=== PATIENT | female | born 1935 | race Caucasian/White ===

== ENCOUNTER 2019-01-08 13:24 | Emergency (ER) | payer MEDICARE, BC ==
--- NOTE | 2019-01-08 14:32 | EDM.PDOC ---
ED HPI GENERAL MEDICAL PROBLEM - General Chief Complaint: Genitourinary Problem Stated Complaint: UTI Time Seen by Provider: 01/08/19 14:10 Source of Information: Reports: Patient History Limitations: Reports: No Limitations - History of Present Illness INITIAL COMMENTS - FREE TEXT/NARRATIVE: 83-year-old female with mild dysuria and increased urinary frequency for the past 2 days. No fevers or chills, no significant back pain. 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: Musculoskeletal History: Reports: Arthritis Hematologic History: Reports: Anemia, Iron Deficiency Dermatologic History: Reports: Eczema - Past Surgical History HEENT Surgical History: Reports: Adenoidectomy, Cataract Surgery, Tonsillectomy Musculoskeletal Surgical History: Reports: Knee Replacement Social & Family History - Tobacco Use Smoking Status *Q: Never Smoker - Caffeine Use Caffeine Use: Reports: None - Recreational Drug Use Recreational Drug Use: No ED ROS GENERAL - Review of Systems Review Of Systems: See Below Constitutional: Denies: Fever, Chills HEENT: Reports: No Symptoms Respiratory: Denies: Shortness of Breath Cardiovascular: Denies: Chest Pain GI/Abdominal: Denies: Nausea, Vomiting : Reports: Dysuria, Frequency Skin: Reports: No Symptoms ED EXAM, RENAL/ - Physical Exam Exam: See Below Exam Limited By: No Limitations General Appearance: Alert, No Apparent Distress Respiratory/Chest: No Respiratory Distress Back Exam: No: CVA Tenderness (R), CVA Tenderness (L) Neurological: Alert, Oriented Skin Exam: Warm, Dry Course - Vital Signs Last Recorded V/S: Last Vital Signs Temp 97.4 F 01/08/19 14:10 Pulse 87 01/08/19 14:10 Resp 18 01/08/19 14:10 BP 169/89 H 01/08/19 14:10 Pulse Ox 95 01/08/19 14:10 - Orders/Labs/Meds Orders: Active Orders 24 hr Category Date Time Status CULTURE URINE [RM] Stat Lab 01/08/19 14:29 Received Labs: Laboratory Tests 01/08/19 Range/Units 13:58 Urine Color Yellow Urine Appearance Cloudy Urine pH 6.0 (4.5-8.0) Ur Specific [place] 1.015 (1.008-1.030) Urine Protein Negative (NEGATIVE) mg/dL Urine Glucose (UA) Normal (NEGATIVE) mg/dL Urine Ketones Negative (NEGATIVE) mg/dL Urine Occult Blood Negative (NEGATIVE) Urine Nitrite Positive H (NEGATIVE) Urine Bilirubin Negative (NEGATIVE) Urine Urobilinogen Normal (NORMAL) mg/dL Ur Leukocyte Esterase Large (NEGATIVE) Urine RBC 0-5 (0-5) Urine WBC 20-30 H (0-5) Ur Epithelial Cells Few Amorphous Sediment Few Urine Bacteria Few Urine Mucus Not seen - Re-Assessments/Exams Free Text/Narrative Re-Assessment/Exam: 01/08/19 17:07 UA nitrate pos, wbc present. Culture started and patient placed on Macrobid 100 mg bid 5 days. Departure - Departure Time of Disposition: 14:47 Disposition: Home, Self-Care 01 Condition: Good Clinical Impression: UTI, Urinary tract infectious disease - Discharge Information Instructions: Urinary Tract Infection, Adult Referrals: PCP,None [Primary Care Provider] - Forms: ED Department Discharge Care Plan Goals: Take antibiotic twice daily as prescribed. Take for the full 5 days, and recheck in 2-3 days if not improving satisfactorily. - My Orders Last 24 Hours: My Active Orders 01/08/19 14:29 CULTURE URINE [RM] Stat - Assessment/Plan Last 24 Hours: My Active Orders 01/08/19 14:29 CULTURE URINE [RM] Stat
== END 2019-01-08 14:46 | disposition home or self-care (01) ==
LOC: JP.ED 13:24
DX: N39.0 Urinary tract infection, site not specified (principal); M19.90 Unspecified osteoarthritis, unspecified site; Z98.49 Cataract extraction status, unspecified eye; Z98.890 Other specified postprocedural states
CPT/HCPCS: 81001; 87086; 99283

== ENCOUNTER 2019-01-12 12:13 | Emergency (ER) | payer MEDICARE, BC ==
--- NOTE | 2019-01-12 13:44 | EDM.PDOC ---
ED HPI GENERAL MEDICAL PROBLEM - General Chief Complaint: Genitourinary Problem Stated Complaint: UTI/NOT GETTING BETTER Time Seen by Provider: 01/12/19 12:27 Source of Information: Reports: Patient History Limitations: Reports: No Limitations - History of Present Illness INITIAL COMMENTS - FREE TEXT/NARRATIVE: chief complaint: frequent painful urination This is a 83 year old female presents to the ER for evaluation of symptoms. she reports treated for a bladder infection on 01/08/2019 in ER. She was given Macrobid bid x 5 days. Reports felt better for about a day then urgency, pain returns. She was up multi times during the night to go to the bathroom. Feels like fever started yesterday. She is able to eat and drink without any nausea, vomiting or diarrhea. Onset Date: 01/06/19 Duration: Waxing/Waning (started antibiotic 01/08/2010, improved for one day then symptoms returned. now feeling a bit worse. 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 (see below) - Related Data Allergies Allergy/AdvReac Type Severity Reaction Status Date / Time No Known Allergies Allergy Verified 01/08/19 14:12 Home Meds: Home Meds Alendronate Sodium [Fosamax] 70 mg PO WEEKLY 01/12/19 [History] Calcium Citrate/Vitamin D3 [Calcium Citrate - Vit D Caplet] 1 tab PO DAILY 01/12 [History] Cetirizine [ZyrTEC] 10 mg PO DAILY 01/12/19 [History] Docusate Sodium [Colace] 100 mg PO BID 01/12/19 [History] Ferrous Sulfate [Iron] 325 mg PO ASDIRECTED 01/12/19 [History] Fluticasone Propionate [Flonase] 01/12/19 [History] Folic Acid 1 mg PO ASDIRECTED 01/12/19 [History] Nitrofurantoin Garrett/Macrocryst [Nitrofurantoin Garrett-MCR] 01/12/19 [History] Omeprazole Magnesium [Prilosec Otc] 40 mg PO DAILY 01/12/19 [History] traMADol [Ultram] 25 mg PO BEDTIME 01/12/19 [History] Past Medical History HEENT History: Reports: Cataract Genitourinary History: Reports: Urinary Incontinence 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: Musculoskeletal History: Reports: Arthritis Hematologic History: Reports: Anemia, Iron Deficiency Dermatologic History: Reports: Eczema - Past Surgical History HEENT Surgical History: Reports: Adenoidectomy, Cataract Surgery, Tonsillectomy Musculoskeletal Surgical History: Reports: Knee Replacement Social & Family History - Tobacco Use Smoking Status *Q: Unknown Ever Smoked - Caffeine Use Caffeine Use: Reports: None - Living Situation & Occupation Living situation: Reports: ED ROS GENERAL - Review of Systems Review Of Systems: See Below Constitutional: Reports: Fever, Malaise HEENT: Reports: No Symptoms Respiratory: Reports: No Symptoms Cardiovascular: Reports: No Symptoms Endocrine: Reports: No Symptoms GI/Abdominal: Reports: No Symptoms : Reports: Dysuria, Flank Pain (report low back pain since yesterday), Frequency, Pain, Urgency Musculoskeletal: Reports: No Symptoms Skin: Reports: Rash (groin area and external genitalia with redness, white exudate noted at entroitus. mild odor) Neurological: Reports: No Symptoms Psychiatric: Reports: No Symptoms Hematologic/Lymphatic: Reports: No Symptoms Immunologic: Reports: No Symptoms ED EXAM, GI/ABD - Physical Exam Exam: See Below Exam Limited By: No Limitations General Appearance: Alert, WD/WN, No Apparent Distress Eyes: Bilateral: Normal Appearance Ears: Normal External Exam Nose: Normal Inspection Throat/Mouth: Normal Inspection Head: Atraumatic, Normocephalic Neck: Normal Inspection, Supple, Non-Tender, Full Range of Motion Respiratory/Chest: No Respiratory Distress, Lungs Clear, Normal Breath Sounds, No Accessory Muscle Use Cardiovascular: Regular Rate, Rhythm, No Murmur GI/Abdominal Exam: Normal Bowel Sounds, Soft, Non-Tender (Female) Exam: Vaginal Discharge (white discharge noted labia majora and entroitus. redness to groin ) Back Exam: Normal Inspection, Full Range of Motion Extremities: Normal Inspection, Normal Range of Motion Neurological: No Motor/Sensory Deficits Psychiatric: Normal Affect, Normal Mood Skin Exam: Warm, Dry, Intact, Rash (tinnea type rash noted to groin) Lymphatic: No Adenopathy Course - Vital Signs Last Recorded V/S: Last Vital Signs Temp 35.5 C 01/12/19 12:46 Pulse 88 05/18/19 12:46 Resp 19 01/12/19 12:46 BP 161/65 H 01/12/19 12:46 Pulse Ox 95 01/12/19 12:46 - Orders/Labs/Meds Labs: Laboratory Tests 01/12/19 Range/Units 13:07 Urine Color Yellow Urine Appearance Slightly cloudy Urine pH 6.0 (4.5-8.0) Ur Specific [place] 1.015 (1.008-1.030) Urine Protein Negative (NEGATIVE) mg/dL Urine Glucose (UA) Normal (NEGATIVE) mg/dL Urine Ketones Negative (NEGATIVE) mg/dL Urine Occult Blood Negative (NEGATIVE) Urine Nitrite Negative (NEGATIVE) Urine Bilirubin Negative (NEGATIVE) Urine Urobilinogen Normal (NORMAL) mg/dL Ur Leukocyte Esterase Negative (NEGATIVE) Urine RBC 0-5 (0-5) Urine WBC 0-5 (0-5) Ur Epithelial Cells Rare Amorphous Sediment Not seen Urine Bacteria Not seen Urine Mucus Not seen - Re-Assessments/Exams Free Text/Narrative Re-Assessment/Exam: 01/12/19 12:34 vital signs 35.5-88-19 B/P161/65 oxygen 95% urine with WBC 0-5, cloudy urine. wet prep; +bacteria, no yeast due to symptoms of UTI, will treat with antibiotic and advise follow up in Primary Care discussed return to ER if not improved. Departure - Departure Time of Disposition: 13:40 Disposition: Home, Self-Care 01 Condition: Good Clinical Impression: Cystitis - Discharge Information *PRESCRIPTION DRUG MONITORING PROGRAM REVIEWED*: Not Applicable *COPY OF PRESCRIPTION DRUG MONITORING REPORT IN PATIENT ARLYN: Not Applicable Instructions: Urinary Tract Infection, Adult Referrals: PCP,None [Primary Care Provider] - Forms: ED Department Discharge Care Plan Goals: Urinary Tract symptoms -start Keflex 500 mg take two times a day til gone -apply clotrimazole 1% cream to groin two times a day for 7 d ays -please drink at least 6 to 8 glasses of water for the next few days -follow up in Primary Care for recheck on Monday or Monday Return to ER sooner if has increased pain, fever, chills, nausea, vomiting, rash or not improved - Problem List & Annotations (1) Urinary tract infection symptoms SNOMED Code(s): 140690938 Code(s): R39.9 - UNSP SYMPTOMS AND SIGNS INVOLVING THE GENITOURINARY SYSTEM Status: Acute Priority: High - Problem List Review Problem List Initiated/Reviewed/Updated: Yes - Assessment/Plan Plan: Urinary Tract symptoms -start Keflex 500 mg take two times a day til gone -apply clotrimazole 1% cream to groin two times a day for 7 d ays -please drink at least 6 to 8 glasses of water for the next few days -follow up in Primary Care for recheck on Monday or Monday Return to ER sooner if has increased pain, fever, chills, nausea, vomiting, rash or not improved
== END 2019-01-12 14:10 | disposition home or self-care (01) ==
LOC: JP.ED 12:13
DX: N30.90 Cystitis, unspecified without hematuria (principal); Z79.899 Other long term (current) drug therapy
CPT/HCPCS: 81001; 87210; 99283

== ENCOUNTER 2019-02-02 13:39 | Emergency (ER) | payer MEDICARE, BC ==
--- NOTE | 2019-02-02 16:03 | EDM.PDOC ---
ED HPI GENERAL MEDICAL PROBLEM - General Chief Complaint: Genitourinary Problem Stated Complaint: UTI/INJURY IN TAIL BONE Time Seen by Provider: 02/02/19 15:00 Source of Information: Reports: Patient History Limitations: Reports: No Limitations, Other (elderly) - History of Present Illness INITIAL COMMENTS - FREE TEXT/NARRATIVE: 83-year-old female presents to the ER for dysuria and tailbone pain. Patient was seen twice last month for similar symptoms. Patient is given Macrobid and then ciprofloxacin for urinary tract infection with negative urine culture results. Patient is a history of a bladder suspension to help with urinary leakage. She is wearing depends. She has noticed some burning and tingling in her groin area also noted a rash. Patient states she has pain and burning with urination. She is attempting to hydrate herself to help with the dysuria but unfortunate she is urinating more often. Patient also has tailbone pain but states when her first son was born approximately 60 years ago she had a tailbone fracture and has had intermittent tailbone pain in the past. Patient denies any weakness in her right or left leg. Her pain in her back does radiate into her groin area. Patient has not had any new falls or injury she has fallen once and which she bruised her tailbone once again. Patient is dropped off by her for evaluation. Patient is wearing her night clothes in the middle of the afternoon due to just not feeling well. Patient states she was given 2 units of blood a couple months ago tripped due to her hemoglobin being less than 6. Nay's has been here Onset: Gradual Groin Pain Score (Numeric/FACES): 4 - Related Data Allergies Allergy/AdvReac Type Severity Reaction Status Date / Time No Known Allergies Allergy Verified 02/02/19 15:13 Home Meds: Home Meds Alendronate Sodium [Fosamax] 70 mg PO WEEKLY 01/12/19 [History] Calcium Citrate/Vitamin D3 [Calcium Citrate - Vit D Caplet] 1 tab PO DAILY 01/12 [History] Cetirizine [ZyrTEC] 10 mg PO DAILY 01/12/19 [History] Docusate Sodium [Colace] 100 mg PO BID 01/12/19 [History] Ferrous Sulfate [Iron] 325 mg PO ASDIRECTED 01/12/19 [History] Fluticasone Propionate [Flonase] 1 spray DANILO DAILY 01/12/19 [History] Folic Acid 1 mg PO ASDIRECTED 01/12/19 [History] Omeprazole Magnesium [Prilosec Otc] 40 mg PO DAILY 01/12/19 [History] traMADol [Ultram] 25 mg PO BEDTIME 01/12/19 [History] Estradiol [Estrace Vaginal] 1 applic VAG BEDTIME 14 Days #1 tube 02/02/19 [Rx] Nystatin 30 gm TP ACLUNCH 14 Days #1 container 02/02/19 [Rx] Past Medical History HEENT History: Reports: Cataract Genitourinary History: Reports: Urinary Incontinence, UTI, 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: Musculoskeletal History: Reports: Arthritis Hematologic History: Reports: Anemia, Iron Deficiency Dermatologic History: Reports: Eczema - Past Surgical History HEENT Surgical History: Reports: Adenoidectomy, Cataract Surgery, Tonsillectomy Female Surgical History: Reports: Hysterectomy Musculoskeletal Surgical History: Reports: Knee Replacement Social & Family History - Tobacco Use Smoking Status *Q: Never Smoker - Caffeine Use Caffeine Use: Reports: None - Recreational Drug Use Recreational Drug Use: No - Living Situation & Occupation Living situation: Reports: ED ROS GENERAL - Review of Systems Review Of Systems: See Below Constitutional: Reports: No Symptoms, Malaise, Weakness, Night Sweats. Denies: Fever, Chills : Reports: Dysuria, Incontinence, Pain Musculoskeletal: Reports: Back Pain (Tailbone recurrent ) Psychiatric: Reports: Confusion (possible underlying dementia. Limited medical history in [facility] ) ED EXAM, GENERAL - Physical Exam Exam: See Below Exam Limited By: Other (possible underlying dementia due to age) Eye Exam: Bilateral Eye: EOMI, PERRL Ears: Normal External Exam, Normal TMs. No: Hearing Grossly Normal (slightly hard of hearing ) Respiratory/Chest: No Respiratory Distress, Lungs Clear, Normal Breath Sounds, No Accessory Muscle Use, Chest Non-Tender Cardiovascular: Normal Peripheral Pulses, Regular Rate, Rhythm, No Edema, No Gallop, No JVD, No Rub, Systolic Murmur GI/Abdominal: Normal Bowel Sounds, Soft, No Organomegaly, No Distention, No Abnormal Bruit, No Mass, Tender (mild diffuse discomfort without focal or significant pain ) (Female) Exam: Cervical Discharge, Other (uretheral irritation noted. Groin erythema with rash consistent with poor hygiene. Atrophic vaginal tissue noted with small tears/excoriations. ). No: Vaginal Bleeding, Vaginal Discharge Back Exam: Normal Inspection, CVA Tenderness (R), CVA Tenderness (L) (slight pain in lower back over tailbone but unable to reproduce. ) Extremities: Normal Inspection, Normal Range of Motion, Non-Tender, Normal Capillary Refill, No Pedal Edema Neurological: Alert, Oriented, CN II-XII Intact, Normal Gait, No Motor/Sensory Deficits, Confused Psychiatric: Normal Affect (slight confusion), Normal Mood Skin Exam: Warm, Dry, Intact, Normal Color, No Rash Course - Vital Signs Last Recorded V/S: Last Vital Signs Temp 36.3 C 02/02/19 13:51 Pulse 90 02/02/19 13:51 Resp 20 02/02/19 13:51 BP 152/78 H 02/02/19 13:51 Pulse Ox 95 02/02/19 13:51 - Orders/Labs/Meds Orders: Active Orders 24 hr Category Date Time Status CULTURE URINE [RM] Stat Lab 02/02/19 15:04 Received Labs: Laboratory Tests 02/02/19 02/02/19 Range/Units 15:00 15:00 WBC 6.4 (4.5-11.0) K/uL RBC 4.04 (3.30-5.50) M/uL Hgb 9.1 L (12.0-15.0) g/dL Hct 31.9 L (36.0-48.0) % MCV 79 L (80-98) fL MCH 23 L (27-31) pg MCHC 29 L (32-36) % Plt Count 248 (150-400) K/uL Neut % (Auto) 68 H (36-66) % Lymph % (Auto) 20 L (24-44) % [place] % (Auto) 9 H (2-6) % Eos % (Auto) 2 (2-4) % Baso % (Auto) 1 (0-1) % Sodium 138 L (140-148) mmol/L Potassium 3.8 (3.6-5.2) mmol/L Chloride 104 (100-108) mmol/L Carbon Dioxide 28 (21-32) mmol/L Anion Gap 9.8 (5.0-14.0) mmol/L BUN 17 (7-18) mg/dL Creatinine 0.7 (0.6-1.0) mg/dL Est Cr Clr Drug Dosing 50.37 mL/min Estimated GFR (MDRD) > 60 (>60) Glucose 91 (74-106) mg/dL Calcium 9.0 (8.5-10.1) mg/dL Total Bilirubin 0.3 (0.2-1.0) mg/dL AST 26 (15-37) U/L ALT 30 (12-78) U/L Alkaline Phosphatase 69 (46-116) U/L Total Protein 6.3 L (6.4-8.2) g/dL Albumin 3.5 (3.4-5.0) g/dL Globulin 2.8 (2.3-3.5) g/dL Albumin/Globulin Ratio 1.2 (1.2-2.2) Departure - Departure Time of Disposition: 16:09 Disposition: Home, Self-Care 01 Condition: Fair (urethritis) Clinical Impression: Urethritis, Senile (atrophic) vaginitis - Discharge Information Prescriptions: Estradiol [Estrace Vaginal] 1 applic VAG BEDTIME 14 Days #1 tube Nystatin 30 gm TP ACLUNCH 14 Days #1 container Instructions: Vaginitis, [id number], Atrophic Vaginitis, [id number] Referrals: PCP,None [Primary Care Provider] - Dev Braden MD [Physician] - 1 Week (clinic recheck in 1-2 weeks request to establish care ) Additional Instructions: 1. Estrogen Cream every night x 2 weeks. 2. Nystatin powder in sweta area every am and pm. 3. Tylenol 500-1000mg every 6-8 hours as needed for back pain. 4. Follow-up with Primary Care Provider in [place] or Dr Braden in 1-2 weeks. 5. Local Follow-up appointment is requested on your behalf. - My Orders Last 24 Hours: My Active Orders 02/02/19 15:04 CULTURE URINE [RM] Stat - Assessment/Plan Last 24 Hours: My Active Orders 02/02/19 15:04 CULTURE URINE [RM] Stat
== END 2019-02-02 16:50 | disposition home or self-care (01) ==
LOC: JP.ED 13:39
DX: N34.2 Other urethritis (principal); N95.2 Postmenopausal atrophic vaginitis; Z79.899 Other long term (current) drug therapy
CPT/HCPCS: 36415; 80053; 85025; 87086; 99283

== ENCOUNTER 2019-02-13 20:04 | Emergency (ER) | payer MEDICARE, BC ==
[2019-02-13] MEDS ORDERED: cefTRIAXone 1 GM Vial IM ONE (21:22)
[2019-02-13] MEDS ORDERED: Bacitracin Oint 1 GM U/D Packet TOP ONE (21:23)
--- NOTE | 2019-02-13 21:29 | EDM.PDOC ---
ED HPI GENERAL MEDICAL PROBLEM - General Chief Complaint: Bite:Animal, Insect Stated Complaint: CAT BITE Time Seen by Provider: 02/13/19 20:26 Source of Information: Reports: Patient History Limitations: Reports: No Limitations - History of Present Illness INITIAL COMMENTS - FREE TEXT/NARRATIVE: chief complaint: cat bite This is a 83 year old female present to ER for evaluation of cat bite. She reports last night her pet cat "who is naughty", bite her on the left hand. Both Mrs. Davey and the cat have immunizations that are up to date. She immediately washed the bite and applied antibiotic ointment and bandage. This evening she noticed increased redness, swelling and mild pain. 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 Pain Score (Numeric/FACES): 2 - Related Data Allergies Allergy/AdvReac Type Severity Reaction Status Date / Time No Known Allergies Allergy Verified 02/13/19 21:56 Home Meds: Home Meds Alendronate Sodium [Fosamax] 70 mg PO WEEKLY 01/12/19 [History] Calcium Citrate/Vitamin D3 [Calcium Citrate - Vit D Caplet] 1 tab PO DAILY 01/12 [History] Cetirizine [ZyrTEC] 10 mg PO DAILY 01/12/19 [History] Docusate Sodium [Colace] 100 mg PO BID 01/12/19 [History] Ferrous Sulfate [Iron] 325 mg PO ASDIRECTED 01/12/19 [History] Fluticasone Propionate [Flonase] 1 spray DANILO DAILY 01/12/19 [History] Folic Acid 1 mg PO ASDIRECTED 01/12/19 [History] Omeprazole Magnesium [Prilosec Otc] 40 mg PO DAILY 01/12/19 [History] traMADol [Ultram] 25 mg PO BEDTIME 01/12/19 [History] Estradiol [Estrace Vaginal] 1 applic VAG BEDTIME 14 Days #1 tube 02/02/19 [Rx] Nystatin 30 gm TP ACLUNCH 14 Days #1 container 02/02/19 [Rx] Past Medical History HEENT History: Reports: Cataract Genitourinary History: Reports: Urinary Incontinence, UTI, Recurrent 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: Musculoskeletal History: Reports: Arthritis Hematologic History: Reports: Anemia, Iron Deficiency Dermatologic History: Reports: Eczema - Past Surgical History HEENT Surgical History: Reports: Adenoidectomy, Cataract Surgery, Tonsillectomy Female Surgical History: Reports: Hysterectomy Musculoskeletal Surgical History: Reports: Knee Replacement Social & Family History - Caffeine Use Caffeine Use: Reports: None - Living Situation & Occupation Living situation: Reports: ED ROS GENERAL - Review of Systems Review Of Systems: See Below Constitutional: Reports: No Symptoms HEENT: Reports: No Symptoms Respiratory: Reports: No Symptoms Cardiovascular: Reports: No Symptoms Skin: Reports: Wound (with surrounding redness.) Hematologic/Lymphatic: Reports: No Symptoms Immunologic: Reports: No Symptoms ED EXAM, ANIMAL BITE - Physical Exam Exam: See Below Exam Limited By: No Limitations General Appearance: Alert, WD/WN, No Apparent Distress Eye Exam: Left Eye: Other (old bruising noted to left eye from fall at home) Neck: Normal Inspection, Supple, Non-Tender Respiratory/Chest: No Respiratory Distress, Lungs Clear Cardiovascular: Normal Peripheral Pulses, Regular Rate, Rhythm, No Edema, No Murmur Extremities: Increased Warmth (left hand), Redness (left hand), Other (hand) Neurological: Alert, Oriented, CN II-XII Intact, Normal Cognition, Normal Gait, Normal Reflexes, No Motor/Sensory Deficits Psychiatric: Normal Affect, Normal Mood Skin Exam: Other (left hand with cellulitis cat bite and redness, left eye black from old injury. ) Lymphatic: No Adenopathy Course - Vital Signs Last Recorded V/S: Last Vital Signs Temp 36.2 C 02/13/19 21:55 Pulse 51 L 02/13/19 21:55 Resp 22 H 02/13/19 21:55 BP 159/81 H 02/13/19 21:55 Pulse Ox 93 L 02/13/19 21:55 - Orders/Labs/Meds Meds: Medications Discontinued Medications Generic Name Dose Route Start Last Admin Trade Name Freq PRN Reason Stop Dose Admin Bacitracin 1 dose 02/13/19 21:23 02/13/19 22:14 Bacitracin Oint 1 Gm TOP 02/13/19 21:24 1 dose ONETIME ONE Administration Ceftriaxone Sodium 1 gm 02/13/19 21:22 02/13/19 22:17 Rocephin IM 02/13/19 21:23 1 gm ONETIME ONE Administration Lidocaine HCl 5 ml 02/13/19 22:03 02/13/19 22:18 Xylocaine-Mpf 1% INJECT 02/13/19 22:04 5 ml ONETIME ONE Administration Lidocaine HCl 5 ml 02/13/19 22:03 02/13/19 22:18 Xylocaine 1% INJECT 02/13/19 22:04 Not Given NOW STA - Re-Assessments/Exams Free Text/Narrative Re-Assessment/Exam: 02/13/19 21:23 cat bite noted to left hand proximal to left MCP, finger with full flexion and extension, no edema -area of redness marked, hand with edema -bandage applied by Nursing -Rocephin 1 gram IM -discussed with Mrs. Davey, apply warm moist heat to area of redness. if tomorrow the area has increased red, pain, fever, or any worsen of symptoms will need to come back to ER for evaluation. Mrs. Davey agrees with plan of care. Departure - Departure Time of Disposition: 21:48 Disposition: Home, Self-Care 01 Condition: Good Clinical Impression: Cellulitis Qualifiers: Site of cellulitis: extremity Site of cellulitis of extremity: upper extremity Laterality: left Qualified Code(s): L03.114 - Cellulitis of left upper limb Cat bite of hand Qualifiers: Encounter type: initial encounter Laterality: left Qualified Code(s): S61.452A - Open bite of left hand, initial encounter - Discharge Information *PRESCRIPTION DRUG MONITORING PROGRAM REVIEWED*: Not Applicable *COPY OF PRESCRIPTION DRUG MONITORING REPORT IN PATIENT ARLYN: Not Applicable Instructions: Animal Bite, Adult, [id number], Cellulitis, Adult, [id number] Referrals: PCP,None [Primary Care Provider] - Forms: ED Department Discharge Care Plan Goals: Cat bite with Cellulitis -area of redness marked, hand with edema -bandage applied by Nursing -Rocephin 1 gram IM -start Augmentin 875mg by mouth two times a day, start tonight -discussed with Roxanne Petar, apply warm moist heat to area of redness. if tomorrow the area has increased red, pain, fever, or any worsen of symptoms will need to come back to ER for evaluation. Mrs. Davey agrees with plan of care. - Problem List & Annotations (1) Cat bite of hand SNOMED Code(s): 343330105 Code(s): S61.459A - OPEN BITE OF UNSPECIFIED HAND, INITIAL ENCOUNTER; W55.01XA - BITTEN BY CAT, INITIAL ENCOUNTER Status: Acute Priority: High Current Visit: Yes Qualifiers: Encounter type: initial encounter Laterality: left Qualified Code(s): S61.452A - Open bite of left hand, initial encounter; W55.01XA - Bitten by cat, initial encounter (2) Cellulitis SNOMED Code(s): 325908342 Code(s): L03.90 - CELLULITIS, UNSPECIFIED Status: Acute Priority: High Current Visit: Yes Qualifiers: Site of cellulitis: extremity Site of cellulitis of extremity: upper extremity Laterality: left Qualified Code(s): L03.114 - Cellulitis of left upper limb - Problem List Review Problem List Initiated/Reviewed/Updated: Yes - Assessment/Plan Plan: Cat bite with Cellulitis -area of redness marked, hand with edema -bandage applied by Nursing -Rocephin 1 gram IM -start Augmentin 875mg by mouth two times a day, start tonight -discussed with Mrs. Davey, apply warm moist heat to area of redness. if tomorrow the area has increased red, pain, fever, or any worsen of symptoms will need to come back to ER for evaluation. Mrs. Davey agrees with plan of care.
[2019-02-13] MEDS ORDERED: Lidocaine 1% 50 ML MDV INJECT STA (22:03)
== END 2019-02-13 22:30 | disposition home or self-care (01) ==
LOC: JP.ED 20:04
DX: S61.452A Open bite of left hand, initial encounter (principal); L03.114 Cellulitis of left upper limb; Z79.899 Other long term (current) drug therapy; W55.01XA Bitten by cat, initial encounter
CPT/HCPCS: 96372; 99282; J0696; J2001

== ENCOUNTER 2019-12-26 07:01 | Emergency (ER) | payer BC, MEDICARE ==
--- NOTE | 2019-12-26 08:05 | EDM.PDOC ---
ED HPI GENERAL MEDICAL PROBLEM - General Chief Complaint: Genitourinary Problem Stated Complaint: UTI? Time Seen by Provider: 12/26/19 08:01 Source of Information: Reports: Patient History Limitations: Reports: No Limitations - History of Present Illness INITIAL COMMENTS - FREE TEXT/NARRATIVE: pt has had the urge to void frequently. She was very itchy during the niote. She does not have a history of diabetes. She is not drinking as much water as she should. Onset: Gradual, Other ( This has been going on for several days. ) Duration: Hour(s): Location: Reports: Back, Other (sweta area. ) Associated Symptoms: Reports: Other (pt has had the feeling of hot and cold. ) - Related Data Allergies Allergy/AdvReac Type Severity Reaction Status Date / Time No Known Allergies Allergy Verified 05/06/19 16:04 Home Meds: Home Meds Alendronate Sodium [Fosamax] 70 mg PO WEEKLY 01/12/19 [History] Calcium Citrate/Vitamin D3 [Calcium Citrate - Vit D Caplet] 1 tab PO DAILY 01/12 [History] Cetirizine [ZyrTEC] 10 mg PO DAILY 01/12/19 [History] Docusate Sodium [Colace] 100 mg PO BID PRN 01/12/19 [History] Ferrous Sulfate [Iron] 325 mg PO ASDIRECTED 01/12/19 [History] Fluticasone Propionate [Flonase] 1 spray DANILO DAILY 01/12/19 [History] Folic Acid 1 mg PO ASDIRECTED 01/12/19 [History] estradioL [Estrace Vaginal] 1 applic VAG BEDTIME 14 Days #1 tube 02/02/19 [Rx] Past Medical History HEENT History: Reports: Cataract Genitourinary History: Reports: Urinary Incontinence, UTI, Recurrent 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: Musculoskeletal History: Reports: Arthritis Endocrine/Metabolic History: Reports: Osteoporosis Hematologic History: Reports: Anemia, Iron Deficiency Dermatologic History: Reports: Eczema - Past Surgical History HEENT Surgical History: Reports: Adenoidectomy, Cataract Surgery, Tonsillectomy Female Surgical History: Reports: Hysterectomy Musculoskeletal Surgical History: Reports: Knee Replacement Social & Family History - Tobacco Use Smoking Status *Q: Never Smoker - Caffeine Use Caffeine Use: Reports: None - Recreational Drug Use Recreational Drug Use: No - Living Situation & Occupation Living situation: Reports: ED ROS GENERAL - Review of Systems Review Of Systems: See Below Constitutional: Reports: Other (pt was not able to sleep because of marked itching on her perio area. ) HEENT: Reports: No Symptoms Respiratory: Reports: No Symptoms Cardiovascular: Reports: No Symptoms Endocrine: Reports: No Symptoms GI/Abdominal: Reports: Other ( suprapupic discomfort. ) : Reports: Frequency, Other ( slight burning. ) Musculoskeletal: Reports: No Symptoms Skin: Reports: No Symptoms Neurological: Reports: No Symptoms ED EXAM, GI/ABD - Physical Exam Exam: See Below Text/Narrative:: pt is complaining of marked itchin on her sweta area and urinary burning and frequency. She has noted this for 2-3 days but much worse last nite Exam Limited By: Intoxication General Appearance: Alert, Anxious, Moderate Distress Ears: Normal TMs Nose: Normal Inspection Throat/Mouth: Normal Inspection Neck: Normal Inspection Respiratory/Chest: No Respiratory Distress Cardiovascular: Regular Rate, Rhythm GI/Abdominal Exam: Soft, Non-Tender (Female) Exam: Other (pt is quite red around the sweta area. She does not have alot of discharge. ) Rectal (Female) Exam: Deferred Back Exam: Normal Inspection Extremities: Normal Inspection Neurological: Alert, Oriented, Normal Cognition Course - Vital Signs Last Recorded V/S: Last Vital Signs Temp 36.5 C 12/26/19 07:32 Pulse 82 12/26/19 07:32 Resp 18 12/26/19 07:32 BP 154/95 H 12/26/19 07:32 Pulse Ox 95 12/26/19 07:32 - Orders/Labs/Meds Labs: Laboratory Tests 12/26/19 12/26/19 12/26/19 Range/Units 07:55 07:55 08:46 WBC 8.3 (4.5-11.0) K/uL RBC 4.61 (3.30-5.50) M/uL Hgb 14.2 D (12.0-15.0) g/dL Hct 45.3 (36.0-48.0) % MCV 98 (80-98) fL MCH 31 (27-31) pg MCHC 31 L (32-36) % Plt Count 244 (150-400) K/uL Neut % (Auto) 65 (36-66) % Lymph % (Auto) 23 L (24-44) % [place] % (Auto) 9 H (2-6) % Eos % (Auto) 3 (2-4) % Baso % (Auto) 0 (0-1) % Sodium 140 (140-148) mmol/L Potassium 4.2 (3.6-5.2) mmol/L Chloride 101 (100-108) mmol/L Carbon Dioxide 30 (21-32) mmol/L Anion Gap 9.2 (5.0-14.0) mmol/L BUN 20 H (7-18) mg/dL Creatinine 0.7 (0.6-1.0) mg/dL Est Cr Clr Drug Dosing 49.49 mL/min Estimated GFR (MDRD) > 60 (>60) Glucose 91 (74-106) mg/dL Calcium 8.8 (8.5-10.1) mg/dL Total Bilirubin 0.4 (0.2-1.0) mg/dL AST 18 (15-37) U/L ALT 33 (12-78) U/L Alkaline Phosphatase 83 (46-116) U/L Total Protein 7.0 (6.4-8.2) g/dL Albumin 3.8 (3.4-5.0) g/dL Globulin 3.2 (2.3-3.5) g/dL Albumin/Globulin Ratio 1.2 (1.2-2.2) Urine Color Yellow (YELLOW) Urine Appearance Cloudy A (CLEAR) Urine pH 6.0 (5.0-8.0) Ur Specific [place] >= 1.030 (1.008-1.030) Urine Protein Negative (NEGATIVE) mg/dL Urine Glucose (UA) Negative (NEGATIVE) mg/dL Urine Ketones Negative (NEGATIVE) mg/dL Urine Occult Blood Trace-intact H (NEGATIVE) Urine Nitrite Positive H (NEGATIVE) Urine Bilirubin Negative (NEGATIVE) Urine Urobilinogen 0.2 (0.2-1.0) EU/dL Ur Leukocyte Esterase Small H (NEGATIVE) Urine RBC 0-5 (0-5) Urine WBC 20-30 H (0-5) Ur Epithelial Cells Rare Amorphous Sediment Few Urine Bacteria Many Urine Mucus Rare - Re-Assessments/Exams Free Text/Narrative Re-Assessment/Exam: 12/26/19 09:05 wbc is normal. Her urine is very infected. A culture was set up. Her chet was neg and her bs was normal. Departure - Departure Time of Disposition: 09:06 Disposition: Home, Self-Care 01 Condition: Fair Clinical Impression: UTI (urinary tract infection), Dehydration - Discharge Information Instructions: Urinary Tract Infection, Adult, [id number], Dehydration, Adult , [id number] Referrals: PCP,None [Primary Care Provider] - Forms: ED Department Discharge Care Plan Goals: push fluids, cipro 500mg bid for 10 days, use alot of yogurt and probiotic while on the antibiotic. mycolog cream to sweta area for irritation and itching, Sepsis Event Note - Evaluation Sepsis Screening Result: No Definite Risk - Focused Exam Date Exam was Performed: 12/28/19 Time Exam was Performed: 07:19
== END 2019-12-26 09:26 | disposition home or self-care (01) ==
LOC: JP.ED 07:01
DX: N39.0 Urinary tract infection, site not specified (principal); E86.0 Dehydration
CPT/HCPCS: 36415; 80053; 81001; 85025; 87086; 87088; 87186; 87210; 99283

== ENCOUNTER 2020-01-16 17:49 | Emergency (ER) | payer BC, MEDICARE ==
--- NOTE | 2020-01-16 19:12 | EDM.PDOC ---
ED HPI GENERAL MEDICAL PROBLEM - General Chief Complaint: Lower Extremity Injury/Pain Stated Complaint: FELL Time Seen by Provider: 01/16/20 19:04 Source of Information: Reports: Patient History Limitations: Reports: No Limitations - History of Present Illness INITIAL COMMENTS - FREE TEXT/NARRATIVE: Patient presents for evaluation of her right knee after she fell to her knees and [employer] shopping today. She was standing at one location in the store and turned to go a different direction. It sounds as though she may have caught part of the sole of one shoe and went down onto both knees. She did not fall on any other body part and did not strike her head. There was no loss of consciousness or pre-syncopal symptoms. She was able to bear weight on both legs after she fell however she was only walking small amount to get to her vehicle etc. She stood outside her vehicle on arrival here and still is able to put weight on both legs. She underwent right knee arthroplasty in 2017 and is concerned that something might have happened to her prosthesis. Onset: Today, Sudden Severity: Mild Improves with: Reports: None Worsens with: Reports: Movement - Related Data Allergies Allergy/AdvReac Type Severity Reaction Status Date / Time No Known Allergies Allergy Verified 01/16/20 18:13 Home Meds: Home Meds Alendronate Sodium [Fosamax] 70 mg PO WEEKLY 01/12/19 [History] Calcium Citrate/Vitamin D3 [Calcium Citrate - Vit D Caplet] 1 tab PO DAILY 01/12 [History] Cetirizine [ZyrTEC] 10 mg PO DAILY 01/12/19 [History] Docusate Sodium [Colace] 100 mg PO BID PRN 01/12/19 [History] Ferrous Sulfate [Iron] 325 mg PO ASDIRECTED 01/12/19 [History] Fluticasone Propionate [Flonase] 1 spray DANILO DAILY 01/12/19 [History] Folic Acid 1 mg PO ASDIRECTED 01/12/19 [History] estradioL [Estrace Vaginal] 1 applic VAG BEDTIME 14 Days #1 tube 02/02/19 [Rx] Past Medical History HEENT History: Reports: Cataract Gastrointestinal History: Reports: Chronic Constipation Genitourinary History: Reports: Urinary Incontinence, UTI, Recurrent 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: Musculoskeletal History: Reports: Arthritis Endocrine/Metabolic History: Reports: Osteoporosis Hematologic History: Reports: Anemia, Iron Deficiency Dermatologic History: Reports: Eczema - Past Surgical History Head Surgeries/Procedures: Reports: None HEENT Surgical History: Reports: Adenoidectomy, Cataract Surgery, Tonsillectomy GI Surgical History: Reports: None Female Surgical History: Reports: Hysterectomy Endocrine Surgical History: Reports: None Musculoskeletal Surgical History: Reports: Knee Replacement Dermatological Surgical History: Reports: None Social & Family History - Tobacco Use Smoking Status *Q: Never Smoker Second Hand Smoke Exposure: No - Caffeine Use Caffeine Use: Reports: None - Recreational Drug Use Recreational Drug Use: No - Living Situation & Occupation Living situation: Reports: Review of Systems - Review of Systems Review Of Systems: Comprehensive ROS is negative, except as noted in HPI. ED EXAM, GENERAL - Physical Exam Exam: See Below Free Text/Narrative:: There is a small abrasion in the upper anterior portion of the right leg. There is diffuse pain on palpation of the right knee but no obvious effusion. She is able to flex the knee to 90. Exam Limited By: No Limitations General Appearance: Alert, No Apparent Distress, Anxious Cardiovascular: Regular Rate, Rhythm Extremities: No: Joint Swelling, Limited Range of Motion, Increased Warmth Neurological: Alert Course - Vital Signs Last Recorded V/S: Last Vital Signs Temp 36.4 C 01/16/20 18:13 Pulse 83 01/16/20 18:13 Resp 16 01/16/20 18:13 BP 141/79 H 01/16/20 18:13 Pulse Ox 92 L 01/16/20 18:13 - Orders/Labs/Meds Orders: Active Orders 24 hr Category Date Time Status Knee 3V Rt [CR] Stat Exams 01/16/20 19:12 Ordered - Re-Assessments/Exams Free Text/Narrative Re-Assessment/Exam: 01/16/20 19:17 X-ray of right knee ordered and reviewed by me shows Departure - Departure Time of Disposition: 19:44 Disposition: Home, Self-Care 01 Condition: Good Clinical Impression: Contusion of right knee Qualifiers: Encounter type: initial encounter Qualified Code(s): S80.01XA - Contusion of right knee, initial encounter - Discharge Information *PRESCRIPTION DRUG MONITORING PROGRAM REVIEWED*: Not Applicable *COPY OF PRESCRIPTION DRUG MONITORING REPORT IN PATIENT ARLYN: Not Applicable Referrals: Brianna Benson MD [Primary Care Provider] - Forms: ED Department Discharge Additional Instructions: Apply cold packs to the right knee 20 minutes on and off as needed. Tylenol 650 mg up to 4 times a day as needed for pain. Return to ER if feeling worse in anyway Sepsis Event Note - Evaluation Sepsis Screening Result: No Definite Risk - Focused Exam Vital Signs: Vital Signs Temp Pulse Resp BP Pulse Ox 01/16/20 18:13 36.4 C 83 16 141/79 H 92 L 01/16/20 18:09 36.4 C 83 16 141/79 H 92 L Date Exam was Performed: 01/16/20 Time Exam was Performed: 19:44 - My Orders Last 24 Hours: My Active Orders 01/16/20 19:12 Knee 3V Rt [CR] Stat - Assessment/Plan Last 24 Hours: My Active Orders 01/16/20 19:12 Knee 3V Rt [CR] Stat
--- NOTE | 2020-01-16 20:09 | CRLCR ---
INDICATION: Fall onto knee, status post arthroplasty 2016 TECHNIQUE: Knee radiograph 3 views right COMPARISON: None FINDINGS: Bone: No acute fractures or aggressive bone lesions are identified. Joint: The patient is status post a total knee arthroplasty with patellar resurfacing. No radiographic evidence of asymmetric polyethylene wear, prosthetic loosening or infection is seen. No significant knee effusion is seen. Soft tissue: Unremarkable. No radiopaque foreign bodies are seen. IMPRESSION: 1. There is an unremarkable postoperative appearance of the knee arthroplasty. Dictated by: Turner Potts MD @ 01/16/2020 20:07:31 (Electronically Signed)
== END 2020-01-16 19:50 | disposition home or self-care (01) ==
LOC: JP.ED 17:49
DX: S80.01XA Contusion of right knee, initial encounter (principal); W19.XXXA Unspecified fall, initial encounter; Y92.512 Supermarket, store or market as the place of occurrence of the external cause
CPT/HCPCS: 73562-RT; 99282; 99283-25

== ENCOUNTER 2020-03-12 10:46 | Emergency (ER) | payer MEDICARE, BC ==
[2020-03-12] MEDS ORDERED: Phenazopyridine 95 MG Tab PO ONE (11:43)
--- NOTE | 2020-03-12 11:45 | EDM.PDOC ---
ED HPI GENERAL MEDICAL PROBLEM - General Chief Complaint: Genitourinary Problem Stated Complaint: NOT FEELING WELL, POSSIBLE UTI Time Seen by Provider: 03/12/20 11:35 Source of Information: Reports: Patient, Old Records History Limitations: Reports: No Limitations - History of Present Illness INITIAL COMMENTS - FREE TEXT/NARRATIVE: 84 yo female with a 3 d hx of burning with urination, and some incontinence. No fever, flank pain or nausea. Has had UTI's in the past. She called the clinic and was referred to the ER. Onset: Gradual Onset Date: 03/09/20 Duration: Day(s): (3), Getting Worse Location: Reports: Pelvis (urethra) Quality: Reports: Burning Severity: Moderate Improves with: Reports: None Worsens with: Reports: Other (time) Context: Reports: Other (See HPI) Associated Symptoms: Reports: No Other Symptoms. Denies: Fever/Chills, Nausea/Vomiting Treatments DESIGNATED BROKER: Reports: Other (see below) (none) - Related Data Allergies Allergy/AdvReac Type Severity Reaction Status Date / Time No Known Allergies Allergy Verified 03/12/20 11:16 Home Meds: Home Meds Alendronate Sodium [Fosamax] 70 mg PO WEEKLY 01/12/19 [History] Calcium Citrate/Vitamin D3 [Calcium Citrate - Vit D Caplet] 1 tab PO DAILY 01/12/19 [History] Cetirizine [ZyrTEC] 10 mg PO DAILY 01/12/19 [History] Docusate Sodium [Colace] 100 mg PO BID PRN 01/12/19 [History] Ferrous Sulfate [Iron] 325 mg PO ASDIRECTED 01/12/19 [History] Fluticasone Propionate [Flonase] 1 spray DANILO DAILY 01/12/19 [History] Folic Acid 1 mg PO ASDIRECTED 01/12/19 [History] estradioL [Estrace Vaginal] 1 applic VAG BEDTIME 14 Days #1 tube 02/02/19 [Rx] cephALEXin [Cephalexin] 500 mg PO TID #18 tablet 03/12/20 [Rx] Past Medical History HEENT History: Reports: Cataract Gastrointestinal History: Reports: Chronic Constipation Genitourinary History: Reports: Urinary Incontinence, UTI, Recurrent 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: Musculoskeletal History: Reports: Arthritis Endocrine/Metabolic History: Reports: Osteoporosis Hematologic History: Reports: Anemia, Iron Deficiency Dermatologic History: Reports: Eczema - Past Surgical History Head Surgeries/Procedures: Reports: None HEENT Surgical History: Reports: Adenoidectomy, Cataract Surgery, Tonsillectomy GI Surgical History: Reports: None Female Surgical History: Reports: Hysterectomy Endocrine Surgical History: Reports: None Musculoskeletal Surgical History: Reports: Knee Replacement Dermatological Surgical History: Reports: None Social & Family History - Tobacco Use Smoking Status *Q: Never Smoker - Caffeine Use Caffeine Use: Reports: None - Living Situation & Occupation Living situation: Reports: ED ROS GENERAL - Review of Systems Review Of Systems: See Below Constitutional: Reports: No Symptoms HEENT: Reports: No Symptoms Respiratory: Reports: No Symptoms Cardiovascular: Reports: No Symptoms GI/Abdominal: Reports: No Symptoms : Reports: Dysuria, Frequency, Incontinence. Denies: Flank Pain, Hematuria Musculoskeletal: Reports: Back Pain (chronic) Skin: Reports: No Symptoms Neurological: Reports: No Symptoms ED EXAM, RENAL/ - Physical Exam Exam: See Below Exam Limited By: No Limitations General Appearance: Alert, WD/WN, No Apparent Distress Eye Exam: Bilateral Eye: Normal Inspection Ears: Normal External Exam, Normal Canal, Hearing Grossly Normal Nose: Normal Inspection, No Blood Throat/Mouth: Normal Inspection, Normal Lips, Normal Oropharynx, Normal Voice, No Airway Compromise Head: Atraumatic, Normocephalic Neck: Normal Inspection Respiratory/Chest: No Respiratory Distress, Lungs Clear, Normal Breath Sounds, No Accessory Muscle Use Cardiovascular: Regular Rate, Rhythm, No Edema Extremities: Normal Inspection, Normal Range of Motion, Non-Tender, No Pedal Edema Neurological: Alert, Oriented, CN II-XII Intact, Normal Cognition, No Motor/Sensory Deficits Psychiatric: Normal Affect, Normal Mood Skin Exam: Warm, Dry, Intact, Normal Color, No Rash Course - Vital Signs Last Recorded V/S: Last Vital Signs Temp 36.1 C 03/12/20 11:20 Pulse 68 03/12/20 11:20 Resp 16 03/12/20 11:20 BP 172/74 H 03/12/20 11:20 Pulse Ox 95 03/12/20 11:20 - Orders/Labs/Meds Orders: Active Orders 24 hr Category Date Time Status UA W/MICROSCOPIC [URIN] Stat Lab 03/12/20 12:22 Results Labs: Laboratory Tests 03/12/20 Range/Units 12:22 Urine Color Yellow (YELLOW) Urine Appearance Slightly cloudy A (CLEAR) Urine pH 6.0 (5.0-8.0) Ur Specific [place] >= 1.030 (1.008-1.030) Urine Protein Negative (NEGATIVE) mg/dL Urine Glucose (UA) Negative (NEGATIVE) mg/dL Urine Ketones Negative (NEGATIVE) mg/dL Urine Occult Blood Negative (NEGATIVE) Urine Nitrite Positive H (NEGATIVE) Urine Bilirubin Negative (NEGATIVE) Urine Urobilinogen 0.2 (0.2-1.0) EU/dL Ur Leukocyte Esterase Trace H (NEGATIVE) Meds: Medications Discontinued Medications Generic Name Dose Route Start Last Admin Trade Name Freq PRN Reason Stop Dose Admin Phenazopyridine HCl 95 mg 03/12/20 11:43 03/12/20 11:51 Urinary Pain Relief PO 03/12/20 11:44 95 mg ONETIME ONE Administration Departure - Departure Time of Disposition: 12:32 Disposition: Home, Self-Care 01 Condition: Good Clinical Impression: Cystitis - Discharge Information *PRESCRIPTION DRUG MONITORING PROGRAM REVIEWED*: No *COPY OF PRESCRIPTION DRUG MONITORING REPORT IN PATIENT ARLYN: No Prescriptions: cephALEXin [Cephalexin] 500 mg PO TID #18 tablet Referrals: PCP,None [Primary Care Provider] - Forms: ED Department Discharge Additional Instructions: Take your cephalexin as directed. Rx to [facility]. Take AZO for discomfort. Recheck with your provider as needed. Sepsis Event Note (ED) - Evaluation Sepsis Screening Result: No Definite Risk - Focused Exam Vital Signs: Vital Signs Temp Pulse Resp BP Pulse Ox 03/12/20 11:20 36.1 C 68 16 172/74 H 95 03/12/20 11:03 36.1 C 68 16 172/74 H 95 - My Orders Last 24 Hours: My Active Orders 03/12/20 12:22 UA W/MICROSCOPIC [URIN] Stat - Assessment/Plan Last 24 Hours: My Active Orders 03/12/20 12:22 UA W/MICROSCOPIC [URIN] Stat
== END 2020-03-12 12:57 | disposition home or self-care (01) ==
LOC: JP.ED 10:46
DX: N30.90 Cystitis, unspecified without hematuria (principal)
CPT/HCPCS: 81001; 99283; A9270

== ENCOUNTER 2020-03-21 10:56 | Emergency (ER) | payer MEDICARE, BC ==
--- NOTE | 2020-03-21 11:58 | EDM.PDOC ---
ED HPI GENERAL MEDICAL PROBLEM - General Chief Complaint: Genitourinary Problem Stated Complaint: POSSIBLE UTI Time Seen by Provider: 03/21/20 11:07 Source of Information: Reports: Patient, Family History Limitations: Reports: No Limitations - History of Present Illness INITIAL COMMENTS - FREE TEXT/NARRATIVE: 84 yo female that presents to the emergency room with continued urinary symptoms after completion of antibiotics for UTI. She has had three courses of antibiotics over the last 2 months. most recent was Keflex. today she complains of frequent nighttime urination and suprapubic ache along with right flank pain. generally feels fatigue with muscle aches. appetite is good. denies N/V/D. She does crave ice chips. she is incontinent of urine and wears a pad. She has a yeast infection 4 months ago per ER records. - Related Data Allergies Allergy/AdvReac Type Severity Reaction Status Date / Time No Known Allergies Allergy Verified 03/21/20 11:13 Home Meds: Home Meds Alendronate Sodium [Fosamax] 70 mg PO WEEKLY 01/12/19 [History] Calcium Citrate/Vitamin D3 [Calcium Citrate - Vit D Caplet] 1 tab PO DAILY 01/12/19 [History] Cetirizine [ZyrTEC] 10 mg PO DAILY 01/12/19 [History] Docusate Sodium [Colace] 100 mg PO BID PRN 01/12/19 [History] Ferrous Sulfate [Iron] 325 mg PO ASDIRECTED 01/12/19 [History] Fluticasone Propionate [Flonase] 1 spray DANILO DAILY 01/12/19 [History] Folic Acid 1 mg PO ASDIRECTED 01/12/19 [History] estradioL [Estrace Vaginal] 1 applic VAG BEDTIME 14 Days #1 tube 02/02/19 [Rx] Past Medical History HEENT History: Reports: Cataract Gastrointestinal History: Reports: Chronic Constipation Genitourinary History: Reports: Urinary Incontinence, UTI, Recurrent 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: Musculoskeletal History: Reports: Arthritis Endocrine/Metabolic History: Reports: Osteoporosis Hematologic History: Reports: Anemia, Iron Deficiency Dermatologic History: Reports: Eczema - Past Surgical History Head Surgeries/Procedures: Reports: None HEENT Surgical History: Reports: Adenoidectomy, Cataract Surgery, Tonsillectomy GI Surgical History: Reports: None Female Surgical History: Reports: Hysterectomy Endocrine Surgical History: Reports: None Musculoskeletal Surgical History: Reports: Knee Replacement Dermatological Surgical History: Reports: None Social & Family History - Tobacco Use Smoking Status *Q: Never Smoker - Caffeine Use Caffeine Use: Reports: None - Living Situation & Occupation Living situation: Reports: ED ROS GENERAL - Review of Systems Review Of Systems: See Below Constitutional: Reports: Malaise, Fatigue. Denies: Fever, Chills Respiratory: Denies: Shortness of Breath, Wheezing Cardiovascular: Denies: Chest Pain GI/Abdominal: Reports: Abdominal Pain. Denies: Diarrhea, Nausea : Reports: Flank Pain, Frequency, Incontinence. Denies: Discharge, Dysuria, Hematuria Skin: Denies: Rash Neurological: Denies: Headache ED EXAM, GI/ABD - Physical Exam Exam: See Below Exam Limited By: No Limitations General Appearance: Alert, WD/WN, No Apparent Distress Head: Atraumatic, Normocephalic Neck: Normal Inspection, Supple, Non-Tender, Full Range of Motion. No: Lym phadenopathy (R), Lymphadenopathy (L) Respiratory/Chest: No Respiratory Distress, Lungs Clear, Normal Breath Sounds, Chest Non-Tender. No: Crackles, Rhonchi, Wheezing Cardiovascular: Regular Rate, Rhythm, No Murmur, No Rub GI/Abdominal Exam: Normal Bowel Sounds, Soft, Non-Tender Back Exam: CVA Tenderness (R). No: CVA Tenderness (L) Neurological: Alert, Oriented Psychiatric: Normal Affect, Normal Mood Skin Exam: Warm, Dry, Intact Lymphatic: No Adenopathy Course - Vital Signs Last Recorded V/S: Last Vital Signs Temp 36.6 C 03/21/20 11:22 Pulse 63 03/21/20 11:22 Resp 16 03/21/20 11:22 BP 148/82 H 03/21/20 11:22 Pulse Ox 92 L 03/21/20 11:22 - Orders/Labs/Meds Orders: Active Orders 24 hr Category Date Time Status CULTURE URINE [RM] Stat Lab 03/21/20 13:09 Received Sodium Chloride 0.9% [Normal Saline] 1,000 ml Med 03/21/20 12:00 Active IV ASDIRECTED Medication Orders Sodium Chloride (Normal Saline) 1,000 mls @ 500 mls/hr IV ASDIRECTED ALICE Last Admin: 03/21/20 12:07 Dose: 500 mls/hr Documented by: PRERNA Labs: Laboratory Tests 03/21/20 03/21/20 03/21/20 Range/Units 11:49 12:03 12:03 WBC 5.9 (4.5-11.0) K/uL RBC 4.47 (3.30-5.50) M/uL Hgb 13.7 (12.0-15.0) g/dL Hct 42.8 (36.0-48.0) % MCV 96 (80-98) fL MCH 31 (27-31) pg MCHC 32 (32-36) % Plt Count 225 (150-400) K/uL Neut % (Auto) 69 H (36-66) % Lymph % (Auto) 19 L (24-44) % Josephine % (Auto) 10 H (2-6) % Eos % (Auto) 2 (2-4) % Baso % (Auto) 0 (0-1) % Sodium 141 (140-148) mmol/L Potassium 4.3 (3.6-5.2) mmol/L Chloride 105 (100-108) mmol/L Carbon Dioxide 26 (21-32) mmol/L Anion Gap 10.0 (5.0-14.0) mmol/L BUN 24 H (7-18) mg/dL Creatinine 0.7 (0.6-1.0) mg/dL Est Cr Clr Drug Dosing 53.83 mL/min Estimated GFR (MDRD) > 60 (>60) Glucose 92 (74-106) mg/dL Calcium 8.7 (8.5-10.1) mg/dL Urine Color Yellow (YELLOW) Urine Appearance Clear (CLEAR) Urine pH 6.5 (5.0-8.0) Ur Specific [place] 1.025 (1.008-1.030) Urine Protein Negative (NEGATIVE) mg/dL Urine Glucose (UA) Negative (NEGATIVE) mg/dL Urine Ketones Negative (NEGATIVE) mg/dL Urine Occult Blood Negative (NEGATIVE) Urine Nitrite Negative (NEGATIVE) Urine Bilirubin Negative (NEGATIVE) Urine Urobilinogen 0.2 (0.2-1.0) EU/dL Ur Leukocyte Esterase Negative (NEGATIVE) Urine RBC 0-5 (0-5) Urine WBC 5-10 H (0-5) Ur Epithelial Cells Not seen Amorphous Sediment Not seen Urine Bacteria Few Urine Mucus Moderate Meds: Medications Generic Name Dose Route Start Last Admin Trade Name Freq PRN Reason Stop Dose Admin Sodium Chloride 1,000 mls @ 500 mls/hr 03/21/20 12:00 03/21/20 12:07 Normal Saline IV 500 mls/hr ASDIRECTED [facility] Administration - Re-Assessments/Exams Free Text/Narrative Re-Assessment/Exam: 03/21/20 14:00 ua does indicate acute cystitis with 5-10 WBC and few bacteria. Will treat with Macrobid. kidneys are functioning normally with balanced electrolytes. pt did receive 500 cc fluid hydration. Extensive discussion had with pt and regarding need to establish primary care to be able to assure bacteria clearance and fully evaluate her UTI history Departure - Departure Time of Disposition: 13:52 Disposition: Home, Self-Care 01 Condition: Good Clinical Impression: UTI, Urinary tract infectious disease, Recurrent UTI - Discharge Information *PRESCRIPTION DRUG MONITORING PROGRAM REVIEWED*: Not Applicable *COPY OF PRESCRIPTION DRUG MONITORING REPORT IN PATIENT ARLYN: Not Applicable Instructions: Urinary Tract Infection, Adult, [id number] Referrals: PCP,None [Primary Care Provider] - Forms: ED Department Discharge Additional Instructions: macrobid 100 mg twice daily for 5 days I would like you to follow-up with primary care to establish care and for a repeat urine test to assure clearance of bacteria. please also inform primary care of the multiple UTI over the last 6 months and your history of utilizing botox for incontinence the urine collected today was cultured and we will contact you if the antibiotic that you have been placed on needs to change Use the over the counter medication AZO (phenazopyridine) nightly for comfort increase fluid intake with goal of 64 ounces per day Sepsis Event Note (ED) - Evaluation Sepsis Screening Result: No Definite Risk - Focused Exam Vital Signs: Vital Signs Temp Pulse Resp BP Pulse Ox 03/21/20 11:22 36.6 C 63 16 148/82 H 92 L 03/21/20 11:12 36.6 C 63 16 148/82 H 92 L - My Orders Last 24 Hours: My Active Orders 03/21/20 12:00 Sodium Chloride 0.9% [Normal Saline] 1,000 ml IV ASDIRECTED 03/21/20 13:09 CULTURE URINE [RM] Stat - Assessment/Plan Last 24 Hours: My Active Orders 03/21/20 12:00 Sodium Chloride 0.9% [Normal Saline] 1,000 ml IV ASDIRECTED 03/21/20 13:09 CULTURE URINE [RM] Stat
[2020-03-21] MEDS ORDERED: Sodium Chloride 0.9% 1,000 ML IV SCH (12:00)
== END 2020-03-21 14:12 | disposition home or self-care (01) ==
LOC: JP.ED 10:56
DX: N39.0 Urinary tract infection, site not specified (principal); D64.9 Anemia, unspecified; Z79.899 Other long term (current) drug therapy
CPT/HCPCS: 36415; 80048; 81001; 85025; 87086; 99284; J7030

== ENCOUNTER 2020-03-23 13:11 | Emergency (ER) | payer MEDICARE, BC ==
[2020-03-23] MEDS ORDERED: Acetaminophen 500 MG Tab PO ONE (13:51)
--- NOTE | 2020-03-23 13:58 | EDM.PDOC ---
ED HPI GENERAL MEDICAL PROBLEM - General Chief Complaint: Genitourinary Problem Stated Complaint: uti?? very tired Time Seen by Provider: 03/23/20 13:45 Source of Information: Reports: Patient, EMS, Old Records, RN History Limitations: Reports: No Limitations - History of Present Illness INITIAL COMMENTS - FREE TEXT/NARRATIVE: 84 yo female was seen in the ER 2 days ago on suspicion of a UTI and treated with MacroBid. Had been on cephalexin immediately before that. Her urine culture grew nothing. She has lived in the area for awhile and has been hypertensive on several ER visits, but is not on any HTN meds nor does she have a primary care provider yet. Does say that she has a get establish visit scheduled for later this week. She called the clinic today with an assortment of random complaints and was told to go to the ER. She confesses to me today that she cannot tell when she gets a UTI and has just been assuming that when she does not feel well that it is from a UTI. Mentions diarrhea on and off for the past couple of months. No blood in the stool. Onset: Unknown/Unsure Duration: Day(s):, Waxing/Waning Location: Reports: Generalized Quality: Reports: Ache Severity: Mild Improves with: Reports: Medication Worsens with: Reports: Other (unknown) Context: Reports: Other (see HPI) Associated Symptoms: Reports: Headaches (at times). 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) (currently on MacroBid) Right Abdomen Pain Score (Numeric/FACES): 7 - Related Data Allergies Allergy/AdvReac Type Severity Reaction Status Date / Time No Known Allergies Allergy Verified 03/23/20 13:55 Home Meds: Home Meds Alendronate Sodium [Fosamax] 70 mg PO WEEKLY 01/12/19 [History] Calcium Citrate/Vitamin D3 [Calcium Citrate - Vit D Caplet] 1 tab PO DAILY 01/12/19 [History] Cetirizine [ZyrTEC] 10 mg PO DAILY 01/12/19 [History] Docusate Sodium [Colace] 100 mg PO BID PRN 01/12/19 [History] Ferrous Sulfate [Iron] 325 mg PO ASDIRECTED 01/12/19 [History] Fluticasone Propionate [Flonase] 1 spray DANILO DAILY 01/12/19 [History] Folic Acid 1 mg PO ASDIRECTED 01/12/19 [History] estradioL [Estrace Vaginal] 1 applic VAG BEDTIME 14 Days #1 tube 02/02/19 [Rx] Nitrofurantoin Monohyd/M-Cryst [Macrobid 100 mg Capsule] 100 mg PO BID 03/23/20 [History] Past Medical History HEENT History: Reports: Cataract Gastrointestinal History: Reports: Chronic Constipation Genitourinary History: Reports: Urinary Incontinence, UTI, Recurrent 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: Musculoskeletal History: Reports: Arthritis Endocrine/Metabolic History: Reports: Osteoporosis Hematologic History: Reports: Anemia, Iron Deficiency Dermatologic History: Reports: Eczema - Past Surgical History Head Surgeries/Procedures: Reports: None HEENT Surgical History: Reports: Adenoidectomy, Cataract Surgery, Tonsillectomy GI Surgical History: Reports: None Female Surgical History: Reports: Hysterectomy Endocrine Surgical History: Reports: None Musculoskeletal Surgical History: Reports: Knee Replacement Dermatological Surgical History: Reports: None Social & Family History - Tobacco Use Smoking Status *Q: Never Smoker - Caffeine Use Caffeine Use: Reports: None - Recreational Drug Use Recreational Drug Use: No - Living Situation & Occupation Living situation: Reports: ED ROS GENERAL - Review of Systems Review Of Systems: See Below Constitutional: Reports: Malaise (at times), Fatigue (at times). Denies: Fever, Chills, Diaphoresis, Weight Loss, Weight Gain HEENT: Reports: No Symptoms Respiratory: Reports: No Symptoms Cardiovascular: Reports: No Symptoms Endocrine: Reports: Fatigue GI/Abdominal: Reports: Abdominal Pain (low abdominal pain at times) : Reports: Flank Pain (at times). Denies: Dysuria, Hematuria Musculoskeletal: Reports: Back Pain (at times) Skin: Reports: No Symptoms Neurological: Reports: No Symptoms Psychiatric: Reports: No Symptoms ED EXAM, GENERAL - Physical Exam Exam: See Below Exam Limited By: No Limitations General Appearance: Alert, WD/WN, No Apparent Distress, Obese Eye Exam: Bilateral Eye: Normal Inspection (Is wearing dark sunglasses in the ER) Ears: Normal External Exam, Normal Canal, Hearing Grossly Normal Ear Exam: Bilateral Ear: Auricle Normal, Canal Normal Nose: Normal Inspection, No Blood Throat/Mouth: Normal Inspection, Normal Lips, Normal Oropharynx, Normal Voice, No Airway Compromise Head: Atraumatic, Normocephalic Neck: Normal Inspection Respiratory/Chest: No Respiratory Distress, Lungs Clear, Normal Breath Sounds, No Accessory Muscle Use Cardiovascular: Regular Rate, Rhythm, No Edema GI/Abdominal: Normal Bowel Sounds, Soft, Non-Tender, No Distention Back Exam: Normal Inspection Extremities: Normal Inspection, Normal Range of Motion, Non-Tender, No Pedal Edema Neurological: Alert, Oriented, CN II-XII Intact, Normal Cognition, No Motor/Sensory Deficits Psychiatric: Normal Affect, Normal Mood Skin Exam: Warm, Dry, Intact, Normal Color, No Rash Course - Vital Signs Last Recorded V/S: Last Vital Signs Temp 36.3 C 03/23/20 13:41 Pulse 70 03/23/20 13:41 Resp 18 03/23/20 13:41 BP 171/71 H 03/23/20 13:41 Pulse Ox 95 03/23/20 13:41 - Orders/Labs/Meds Orders: Active Orders 24 hr Category Date Time Status CLOS DIFFICILE PCR W/REFLEX [RM] Stat Lab 03/23/20 14:31 Ordered Labs: Laboratory Tests 03/23/20 03/23/20 Range/Units 13:45 14:23 Troponin I < 0.017 (0.000-0.056) ng/mL TSH, Ultra Sensitive 1.358 (0.358-3.740) uIU/mL Urine Color Yellow (YELLOW) Urine Appearance Clear (CLEAR) Urine pH 6.0 (5.0-8.0) Ur Specific [place] >= 1.030 (1.008-1.030) Urine Protein Negative (NEGATIVE) mg/dL Urine Glucose (UA) Negative (NEGATIVE) mg/dL Urine Ketones Negative (NEGATIVE) mg/dL Urine Occult Blood Negative (NEGATIVE) Urine Nitrite Negative (NEGATIVE) Urine Bilirubin Negative (NEGATIVE) Urine Urobilinogen 0.2 (0.2-1.0) EU/dL Ur Leukocyte Esterase Trace H (NEGATIVE) Urine RBC 0-5 (0-5) Urine WBC 10-20 H (0-5) Ur Epithelial Cells Moderate Amorphous Sediment Not seen Urine Bacteria Moderate Urine Mucus Moderate Meds: Medications Discontinued Medications Generic Name Dose Route Start Last Admin Trade Name Freq PRN Reason Stop Dose Admin Acetaminophen 1,000 mg 03/23/20 13:51 03/23/20 13:55 Tylenol Extra Strength PO 03/23/20 13:52 1,000 mg ONETIME ONE Administration Lactated Ringer's 1,000 mls @ 1,000 mls/hr 03/23/20 15:03 03/23/20 15:12 Ringers, Lactated IV 03/23/20 16:02 1,000 mls/hr BOLUS ONE Administration - Re-Assessments/Exams Free Text/Narrative Re-Assessment/Exam: 03/23/20 14:33 Was incontinent of stool in the ER, will send a specimen for C.diff at nursing's recommendation. Free Text/Narrative Re-Assessment/Exam: 03/23/20 17:33 Unable to provide a stool specimen, will send home with a container and request return with stool for testing. Was given a liter of LR for mild dehydration. 03/23/20 17:35 Departure - Departure Time of Disposition: 17:55 Disposition: Home, Self-Care 01 Condition: Fair Clinical Impression: Weakness Diarrhea Qualifiers: Diarrhea type: unspecified type Qualified Code(s): R19.7 - Diarrhea, unspecified - Discharge Information *PRESCRIPTION DRUG MONITORING PROGRAM REVIEWED*: No *COPY OF PRESCRIPTION DRUG MONITORING REPORT IN PATIENT ARLYN: No Instructions: Diarrhea, Adult, [id number] Referrals: PCP,None [Primary Care Provider] - Forms: ED Department Discharge Additional Instructions: Keep your upcoming clinic appt to get you started on BP medication. Return a stool specimen here for C.diff testing gabe, keep in refrigerator overnight if you are not able to bring it in right away. Sepsis Event Note (ED) - Evaluation Sepsis Screening Result: No Definite Risk - Focused Exam Vital Signs: Vital Signs Temp Pulse Resp BP Pulse Ox 03/23/20 13:41 36.3 C 70 18 171/71 H 95 03/23/20 13:31 36.3 C 70 18 171/71 H 95 - My Orders Last 24 Hours: My Active Orders 03/23/20 14:31 CLOS DIFFICILE PCR W/REFLEX [RM] Stat - Assessment/Plan Last 24 Hours: My Active Orders 03/23/20 14:31 CLOS DIFFICILE PCR W/REFLEX [RM] Stat
[2020-03-23] MEDS ORDERED: Lactated Ringers 1,000 ML IV ONE (15:03)
== END 2020-03-23 18:11 | disposition home or self-care (01) ==
LOC: JP.ED 13:11
DX: R53.1 Weakness (principal); R19.7 Diarrhea, unspecified; R51 Headache; R10.30 Lower abdominal pain, unspecified; Z79.899 Other long term (current) drug therapy; Z90.49 Acquired absence of other specified parts of digestive tract; Z90.710 Acquired absence of both cervix and uterus; Z98.890 Other specified postprocedural states
CPT/HCPCS: 36415; 81001; 84443; 84484; 96360; 99284; A9270; J7120

== ENCOUNTER 2020-10-31 15:05 | Emergency (ER) | payer MEDICARE, BC ==
[2020-10-31] MEDS ORDERED: Diphtheria,Pertussis(Acell),Tetanus Vaccine 0.5 ML Syringe IM ONE (15:53)
--- NOTE | 2020-10-31 15:59 | EDM.PDOC ---
ED HPI GENERAL MEDICAL PROBLEM - General Chief Complaint: Laceration Stated Complaint: LEFT HAND INJURY Time Seen by Provider: 10/31/20 15:48 Source of Information: Reports: Patient, RN Notes Reviewed History Limitations: Reports: No Limitations - History of Present Illness INITIAL COMMENTS - FREE TEXT/NARRATIVE: 85-year-old female presents emergency department day with injury to her left hand she believes she was scratched by the cat Left Hand Pain Score (Numeric/FACES): 8 - Related Data Allergies Allergy/AdvReac Type Severity Reaction Status Date / Time No Known Allergies Allergy Verified 10/31/20 15:32 Home Meds: Home Meds Alendronate Sodium [Fosamax] 70 mg PO WEEKLY 01/12/19 [History] Calcium Citrate/Vitamin D3 [Calcium Citrate - Vit D Caplet] 1 tab PO DAILY 01/12/19 [History] Cetirizine [ZyrTEC] 10 mg PO DAILY 01/12/19 [History] Docusate Sodium [Colace] 100 mg PO BID PRN 01/12/19 [History] Fluticasone Propionate [Flonase] 1 spray DANILO DAILY 01/12/19 [History] Past Medical History HEENT History: Reports: Cataract Gastrointestinal History: Reports: Chronic Constipation Genitourinary History: Reports: Urinary Incontinence, UTI, Recurrent 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: Musculoskeletal History: Reports: Arthritis Endocrine/Metabolic History: Reports: Osteoporosis Hematologic History: Reports: Anemia, Iron Deficiency Dermatologic History: Reports: Eczema - Past Surgical History Head Surgeries/Procedures: Reports: None HEENT Surgical History: Reports: Adenoidectomy, Cataract Surgery, Tonsillectomy Female Surgical History: Reports: Hysterectomy Musculoskeletal Surgical History: Reports: Knee Replacement Social & Family History - Tobacco Use Tobacco Use Status *Q: Never Tobacco User - Caffeine Use Caffeine Use: Reports: None - Recreational Drug Use Recreational Drug Use: No - Living Situation & Occupation Living situation: Reports: ED ROS GENERAL - Review of Systems Review Of Systems: See Below Constitutional: Reports: No Symptoms Skin: Reports: Wound ED EXAM, SKIN/RASH Exam: See Below Text/Narrative:: [place] of the left hand she has full range of motion all digits there is a 1 cm laceration completely through the dermis in between digits 1 and 2 on the dorsal surface of the hand Exam Limited By: No Limitations General Appearance: Alert, WD/WN, No Apparent Distress ED SKIN PROCEDURES - Laceration/Wound Repair Left Hand Appearance: Subcutaneous, Linear Distal NVT: Neuro & Vascular Intact, No Tendon Injury Skin Prep: Saline Saline Irrigation (cc's): 200 Exploration/Debridement/Repair: Wound Explored, In a Bloodless Field, Explored to Base Closed with: Dermabond Lac/Wound length In cm: 1 Sterile Dressing Applied: Nurse Tetanus Status Addressed: Yes Complications: No Course - Vital Signs Last Recorded V/S: Last Vital Signs Temp 97.4 F 10/31/20 15:30 Pulse 61 10/31/20 15:30 Resp 16 10/31/20 15:30 BP 165/69 H 10/31/20 15:30 Pulse Ox 99 10/31/20 15:30 - Orders/Labs/Meds Orders: Active Orders 24 hr Category Date Time Status Vaccines to be Administered [RC] PER UNIT ROUTINE Care 10/31/20 15:53 Ordered Diphth,Pertuss(Acell),Tet Vac [Boostrix] Med 10/31/20 15:53 Once 0.5 ml IM .ONCE ONE Departure - Departure Time of Disposition: 15:57 Disposition: Home, Self-Care 01 Condition: Fair Clinical Impression: Cat scratch of left hand Qualifiers: Encounter type: initial encounter Qualified Code(s): S60.512A - Abrasion of left hand, initial encounter; W55.03XA - Scratched by cat, initial encounter - Discharge Information Instructions: Laceration Care, Adult, [id number] Referrals: Brianna Benson MD [Primary Care Provider] - Additional Instructions: Follow-up with primary care as needed Sepsis Event Note (ED) - Evaluation Sepsis Screening Result: No Definite Risk - Focused Exam Vital Signs: Vital Signs Temp Pulse Resp BP Pulse Ox 10/31/20 15:30 97.4 F 61 16 165/69 H 99 10/31/20 15:23 97.4 F 61 16 165/69 H 99 - My Orders Last 24 Hours: My Active Orders 10/31/20 15:53 Vaccines to be Administered [RC] PER UNIT ROUTINE Diphth,Pertuss(Acell),Tet Vac [Boostrix] 0.5 ml IM .ONCE ONE - Assessment/Plan Last 24 Hours: My Active Orders 10/31/20 15:53 Vaccines to be Administered [RC] PER UNIT ROUTINE Diphth,Pertuss(Acell),Tet Vac [Boostrix] 0.5 ml IM .ONCE ONE Plan: Assessment Acuity = acute Site and laterality = laceration left hand Etiology = cat trauma Manifestations = none Location of injury = Home Lab values = none Plan Treated with Dermabond Steri-Strips tetanus was updated today follow-up primary care as needed This note was dictated using Indoch[place] voice recognition software please call with any questions on syntax or grammar.
== END 2020-10-31 16:30 | disposition home or self-care (01) ==
LOC: JP.ED 15:05
DX: S61.412A Laceration without foreign body of left hand, initial encounter (principal); Z79.899 Other long term (current) drug therapy; Z23 Encounter for immunization; W55.03XA Scratched by cat, initial encounter
CPT/HCPCS: 12001; 90471; 90715; 99282; 99283-25

== ENCOUNTER 2021-05-07 09:41 | Emergency (ER) | payer MEDICARE, BC ==
[2021-05-07] MEDS ORDERED: HYDROmorphone 0.5 MG/0.5 ML Syringe IVPUSH ONE ×4 (09:43→14:06)
[2021-05-07] MEDS: Sodium Chloride 0.9% 10 ML Syringe FLUSH PRN ×3 (09:54→12:32)
--- NOTE | 2021-05-07 09:58 | EDM.PDOC ---
ED HPI GENERAL MEDICAL PROBLEM - General Chief Complaint: Lower Extremity Injury/Pain Stated Complaint: MEDICAL VIA [facility] Time Seen by Provider: 05/07/21 09:54 Source of Information: Reports: Patient, EMS, Old Records History Limitations: Reports: No Limitations - History of Present Illness INITIAL COMMENTS - FREE TEXT/NARRATIVE: 85 yo female presents via EMS after a fall in her home. Has R hip pain. EMS noted R leg shortening. Lives in her home with her . Denies SOB or cough. 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) Right Hip Pain Score (Numeric/FACES): 6 - Related Data Allergies Allergy/AdvReac Type Severity Reaction Status Date / Time No Known Allergies Allergy Verified 10/31/20 15:32 Home Meds: Home Meds Alendronate Sodium [Fosamax] 70 mg PO WEEKLY 01/12/19 [History] Calcium Citrate/Vitamin D3 [Calcium Citrate - Vit D Caplet] 1 tab PO DAILY 01/12/19 [History] Cetirizine [ZyrTEC] 10 mg PO DAILY 01/12/19 [History] Docusate Sodium [Colace] 100 mg PO BID PRN 01/12/19 [History] Fluticasone Propionate [Flonase] 1 spray DANILO DAILY 01/12/19 [History] Past Medical History HEENT History: Reports: Cataract Gastrointestinal History: Reports: Chronic Constipation Genitourinary History: Reports: Urinary Incontinence, UTI, Recurrent [employer]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: Musculoskeletal History: Reports: Arthritis Endocrine/Metabolic History: Reports: Osteoporosis Hematologic History: Reports: Anemia, Iron Deficiency Dermatologic History: Reports: Eczema - Infectious Disease History Infectious Disease History: Reports: Chicken Pox, Measles, Mumps - Past Surgical History Head Surgeries/Procedures: Reports: None HEENT Surgical History: Reports: Adenoidectomy, Cataract Surgery, Tonsillectomy GI Surgical History: Reports: None Female Surgical History: Reports: Hysterectomy Endocrine Surgical History: Reports: None Musculoskeletal Surgical History: Reports: Knee Replacement Dermatological Surgical History: Reports: None Social & Family History - Tobacco Use Tobacco Use Status *Q: Never Tobacco User - Caffeine Use Caffeine Use: Reports: None - Recreational Drug Use Recreational Drug Use: No - Living Situation & Occupation Living situation: Reports: Review of Systems - Review of Systems Review Of Systems: See Below Constitutional: Reports: No Symptoms Eyes: Reports: No Symptoms Ears: Reports: No Symptoms Nose: Reports: No Symptoms Mouth/Throat: Reports: No Symptoms Respiratory: Reports: No Symptoms. Denies: Shortness of Breath, Cough Cardiovascular: Reports: No Symptoms GI/Abdominal: Reports: No Symptoms Genitourinary: Reports: No Symptoms Musculoskeletal: Reports: Joint Pain (R hip) Skin: Reports: No Symptoms Neurological: Reports: No Symptoms ED EXAM, GENERAL - Physical Exam Exam: See Below Exam Limited By: No Limitations General Appearance: Alert, WD/WN, No Apparent Distress Eye Exam: Bilateral Eye: Normal Inspection Ears: Normal External Exam, Normal Canal, Hearing Grossly Normal Ear Exam: Bilateral Ear: Auricle Normal, Canal Normal Nose: Normal Inspection, No Blood Throat/Mouth: Normal Inspection, Normal Lips, Normal Oropharynx, Normal Voice, No Airway Compromise Head: Atraumatic, Normocephalic Neck: Normal Inspection Respiratory/Chest: No Respiratory Distress, Lungs Clear, Normal Breath Sounds, No Accessory Muscle Use Cardiovascular: Regular Rate, Rhythm, No Edema GI/Abdominal: Soft, Non-Tender Extremities: Limited Range of Motion (R hip due to pain, R leg shortened and externally rotated) Neurological: Alert, Oriented, CN II-XII Intact, Normal Cognition, No Motor/Sensory Deficits Psychiatric: Normal Affect, Normal Mood Skin Exam: Warm, Dry, Intact, Normal Color, No Rash Course - Vital Signs Text/Narrative:: 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 Last Recorded V/S: Last Vital Signs Temp 35.9 C L 05/07/21 10:03 Pulse 65 05/07/21 13:41 Resp 18 05/07/21 13:41 BP 172/83 H 05/07/21 13:41 Pulse Ox 94 L 05/07/21 13:41 - Orders/Labs/Meds Orders: Active Orders 24 hr Category Date Time Status Pacheco Catheter Insertion [Insert Urinary Catheter] [OM. Care 05/07/21 10:45 Ordered PC] Q24H CULTURE URINE [RM] Stat Lab 05/07/21 11:35 Received Saline Lock Insert [OM.PC] Routine Oth 05/07/21 09:42 Ordered Labs: Laboratory Tests 05/07/21 05/07/21 Range/Units 10:11 11:03 Urine Color Yellow (YELLOW) Urine Appearance Slightly cloudy A (CLEAR) Urine pH 7.0 (5.0-8.0) Ur Specific [place] 1.025 (1.008-1.030) Urine Protein Negative (NEGATIVE) mg/dL Urine Glucose (UA) Negative (NEGATIVE) mg/dL Urine Ketones 15 H (NEGATIVE) mg/dL Urine Occult Blood Negative (NEGATIVE) Urine Nitrite Positive H (NEGATIVE) Urine Bilirubin Negative (NEGATIVE) Urine Urobilinogen 0.2 (0.2-1.0) EU/dL Ur Leukocyte Esterase Negative (NEGATIVE) Urine RBC 0-5 (0-5) Urine WBC 5-10 H (0-5) Ur Epithelial Cells Rare Amorphous Sediment Not seen Urine Bacteria Many Urine Mucus Moderate SARS-CoV-2 RNA (NASRIN) Negative (NEGATIVE) Meds: Medications Discontinued Medications Generic Name Dose Route Start Last Admin Trade Name Kathe PRN Reason Stop Dose Admin Hydromorphone HCl 0.5 mg 05/07/21 09:43 05/07/21 09:54 Hydromorphone 0.5 Mg/0.5 Ml Syringe IVPUSH 05/07/21 09:44 0.5 mg ONETIME ONE Administration Hydromorphone HCl 0.25 mg 05/07/21 10:36 05/07/21 10:47 Hydromorphone 0.5 Mg/0.5 Ml Syringe IVPUSH 05/07/21 10:37 0.25 mg ONETIME ONE Administration Hydromorphone HCl 0.5 mg 05/07/21 12:28 05/07/21 12:32 Hydromorphone 0.5 Mg/0.5 Ml Syringe IVPUSH 05/07/21 12:29 0.5 mg ONETIME ONE Administration Hydromorphone HCl 0.5 mg 05/07/21 14:06 05/07/21 14:24 Hydromorphone 0.5 Mg/0.5 Ml Syringe IVPUSH 05/07/21 14:07 0.5 mg ONETIME ONE Administration Sodium Chloride 10 ml 05/07/21 09:42 05/07/21 12:32 Sodium Chloride 0.9% 10 Ml Syringe FLUSH 10 ml ASDIRECTED PRN Administration Keep Vein Open - Radiology Interpretation Free Text/Narrative:: CXR-neg R hip and pelvis [id number] neck fx Departure - Departure Time of Disposition: 14:25 Disposition: DC/Tfer to Acute Hospital 02 Condition: Fair Clinical Impression: Fracture of femoral neck, right Qualifiers: Encounter type: initial encounter Fracture type: closed Qualified Code(s): S72.001A - Fracture of unspecified part of neck of right femur, initial encounter for closed fracture - Discharge Information Referrals: PCP,None [Primary Care Provider] - Forms: ED Department Discharge Sepsis Event Note (ED) - Focused Exam Vital Signs: Vital Signs Temp Pulse Resp BP Pulse Ox Pulse Ox 05/07/21 13:41 65 18 172/83 H 94 L 05/07/21 12:38 64 153/68 H 93 L 05/07/21 11:38 60 140/73 90 L 05/07/21 10:38 63 181/117 H 92 L 05/07/21 10:08 94 L 05/07/21 10:03 35.9 C L 60 15 174/83 H 92 L 05/07/21 09:42 35.9 C L 60 15 174/83 H 92 L - My Orders Last 24 Hours: My Active Orders 05/07/21 09:42 Saline Lock Insert [OM.PC] Routine 05/07/21 10:45 Pacheco Catheter Insertion [Insert Urinary Catheter] [OM.PC] Q24H 05/07/21 11:35 CULTURE URINE [RM] Stat - Assessment/Plan Last 24 Hours: My Active Orders 05/07/21 09:42 Saline Lock Insert [OM.PC] Routine 05/07/21 10:45 Pacheco Catheter Insertion [Insert Urinary Catheter] [OM.PC] Q24H 05/07/21 11:35 CULTURE URINE [RM] Stat
--- NOTE | 2021-05-07 11:10 | CRLCR ---
For Patients: As a result of the Century Cures Act, medical imaging exams and procedure reports are released immediately into your electronic medical record. You may view this report before your referring provider. If you have questions, please contact your health care provider. Indication: Hypoxia, hip fracture Comparison: None available. Technique: Single AP view chest Findings: There is hyperinflation and chronic interstitial change. There is questionable left basilar pleural effusion with adjacent compressive atelectasis and/or infiltrates. There is moderate interstitial prominence likely representing pulmonary edema. The cardiac silhouette is mildly prominent. The bony thorax is grossly intact. Impression: Hyperinflation and chronic interstitial changes with increased interstitial markings likely representing pulmonary edema. Questionable opacification of the left lung base which may represent a small pleural effusion with adjacent compressive atelectasis and/or infiltrates. Dictated by Rory Brenner MD @ 05/07/2021 11:08:29 AM (Electronically Signed)
--- NOTE | 2021-05-07 11:16 | CRLCR ---
For Patients: As a result of the Century Cures Act, medical imaging exams and procedure reports are released immediately into your electronic medical record. You may view this report before your referring provider. If you have questions, please contact your health care provider. INDICATION: Right hip pain status post fall TECHNIQUE: Single view pelvis with AP and Frogleg views right hip COMPARISONS: None available. FINDINGS: Femoral heads are well-seated in the acetabula. There is an impacted subcapital femoral neck fracture. No other acute osseous abnormalities are appreciated. There is moderate degenerative change of the bilateral hips. The soft tissues are unremarkable. IMPRESSION: Impacted subcapital femoral neck fracture of the right hip with associated soft tissue swelling. Dictated by Rory Brenner MD @ 05/07/2021 11:14:23 AM (Electronically Signed)
== END 2021-05-07 14:26 ==
LOC: JP.ED 09:41
DX: S72.091A Other fracture of head and neck of right femur, initial encounter for closed fracture (principal); Z20.822 Contact with and (suspected) exposure to COVID-19; W18.39XA Other fall on same level, initial encounter; Y92.009 Unspecified place in unspecified non-institutional (private) residence as the place of occurrence of the external cause
CPT/HCPCS: 51702; 71045; 73502; 81001; 87086; 87088; 96374; 96376; 99285; J1170; U0002

== ENCOUNTER 2023-02-08 02:19 | Emergency (ER) | payer MEDICARE, BC | END 2023-02-08 03:32 | LOC: JP.ED 02:19 | DX: S70.01XA Contusion of right hip, initial encounter (principal); M19.90 Unspecified osteoarthritis, unspecified site; Z79.82 Long term (current) use of aspirin; Z79.899 Other long term (current) drug therapy; W06.XXXA Fall from bed, initial encounter | CPT/HCPCS: 73502-26-RT; 73502-RT; 99285 ==